=== PATIENT | female | born 1985 | race Caucasian/White ===

== ENCOUNTER 2023-09-07 04:11 | Day surgery (SDC) | payer OTHER ==
[2023-09-02 09:36] VITALS: BMI 28.1
[2023-09-07] MEDS ORDERED: MIDAZOLAM HCL 2 MG/2 ML SINGLE DOSE VIAL ONE (11:23)
[2023-09-07] MEDS ORDERED: ONDANSETRON 4 MG/2 ML VIAL ONE (11:27)
[2023-09-07] MEDS ORDERED: DEXAMETHASONE SOD PHOSPHATE 4 MG/1 ML VIAL ONE (11:27)
[2023-09-07] MEDS ORDERED: LIDOCAINE HCL/PF 2% SDV 5ML VIAL ONE (11:27)
[2023-09-07] MEDS ORDERED: KETOROLAC TROMETHAMINE 30 MG/1 ML VIAL ONE (11:27)
[2023-09-07] MEDS ORDERED: PROPOFOL 20 ML ONE (11:27)
[2023-09-07] MEDS ORDERED: oxyCODONE HCL 5 MG TABLET PO PRN ×3 (12:22→13:15)
[2023-09-07] MEDS ORDERED: ONDANSETRON 4 MG/2 ML VIAL IVPUSH PRN ×2 (12:22→18:22)
[2023-09-07] MEDS ORDERED: LACTATED RINGERS SOLUTION 1,000 ML IV SCH (12:30)
[2023-09-07] MEDS ORDERED: ELECTROLYTE-148 SOLN 1,000 ML IV SCH (13:15)
[2023-09-07] MEDS ORDERED: IBUPROFEN 800 MG/8 ML IJ IVPB PRN (13:15)
[2023-09-07] MEDS ORDERED: IBUPROFEN 600 MG TABLET (FP) PO PRN (13:15)
[2023-09-07 14:48] VITALS: RESP 18
[2023-09-07] MEDS ORDERED: ONDANSETRON *ODT* 4 MG TABLET SL ONE (15:39)
[2023-09-07] MEDS: ONDANSETRON 4 MG TABLET PO ONE (15:40)
[2023-09-07 16:21] VITALS: BP 109/63; PULSE 67; TEMP 97.8
== END 2023-09-07 16:00 | disposition home or self-care (01) ==
LOC: JASU-SURG 04:11
PROVIDERS: ATTEND Obstetrics & Gynecology
PROC: 0UBC8ZZ Excision of Cervix, Via Natural or Artificial Opening Endoscopic (ICD-10-PCS; principal; 2023-09-07 11:00)
DX: N92.1 Excessive and frequent menstruation with irregular cycle (principal); D26.0 Other benign neoplasm of cervix uteri
CPT/HCPCS: 81025; 94760